=== PATIENT | male | born 1995 | race African-American/Black ===

== ENCOUNTER 2018-08-14 15:05 | Emergency (ER) | payer OTHER, SELFPAY ==
[2018-08-14 15:06] VITALS: BP 112/51; PULSE 82; RESP 16; TEMP 36.6; O2SAT 98; BMI 23.3
--- NOTE | 2018-08-14 15:23 | ED.VIS.GEN ---
History of Present Illness Chief Complaint: Edema Informant: Patient Onset: Days - Started a couple days ago Context: Gradual Onset Timing: Continuous Quality: Swelling Location: Pulling upper lip and palpable mass under chin Current Severity: Mild Maximum Severity: Mild Worsened by: Nothing Relieved by: Nothing Associated Symptoms: No associated symptoms Narrative: Patient is a 23-year-old male who presents with swelling to his upper lip. Started a couple days ago. He noted some crusting. He denies pain. He has complained of nasal congestion for the past 2 weeks. He believes his allergies. He denies fever, chills night sweats. He denies change in voice. He denies difficulty swallowing or breathing. He does report a lump under his chin. There is no history rheumatic fever, murmur, SBE or being immune suppressed. He reports he has no primary care physician. Prior similar symptoms: No Recent Illness/Hospitalization: No - Past Medical History (1) No significant past medical history Status: Acute Past Medical History - Allergies and Home Meds Allergies/Adverse Reactions: Allergies No Known Allergies Allergy (Verified 08/14/18 15:07) Primary Care Physician: Care Physician,No Primary [Primary Care Provider] - Prior records reviewed: Yes Past Medical History: None Surgical History: no surgical history Lives: Alone Smoking Status: Never smoker Drugs: None Review of Systems General: Denies: Chills, Fever, Malaise, Sweats Eyes: Denies: Visual changes - bilaterally, Blurred Vision - bilaterally, Diplopia ENT: Reports: Rhinorrhea. Denies: Bilateral ear pain, Sore throat Cardiovascular: Denies: Chest pain Respiratory: Denies: Dyspnea, Cough Gastrointestinal: Denies: Nausea, Vomiting Musculoskeletal: Reports: Swelling - Upper lip. Denies: Myalgias, Arthralgias, Neck pain, Back pain Skin: Reports: Rash. Denies: Abscess, Abrasions Hematologic: Denies: Easy bruising, Easy bleeding Allergy: Denies: Uticaria Physical Exam Vital Signs/Narrative: Vital Signs Temp Pulse Resp BP Pulse Ox 08/14/18 15:06 98 F 82 16 112/51 L 98 Inital Vital Signs reviewed: Yes General: Well nourished, Well developed, No Acute Distress Head: Normocephalic, Atraumatic Eyes: Perrl, EOMI. Negative for: Pale conjunctiva, Scleral icterus, - ENT: Moist mucous membranes, No rhinorrhea, TM's clear, - - Upper lip is slightly swollen. There is no erythema, warmth or induration. There is no fluctuance. There is crusting to suggest infection. There is submental lymphadenopathy. There is no evidence of Ludewig angina. There is no dental pathology noted. There is no trismus. There is no evidence of facial cellulitis. Neck: Supple, Nontender, No JVD. Negative for: No lymphadenopathy Cardiovascular: Regular rate, Regular rhythm, No murmurs, Normal S1, Normal S2 Respiratory: No distress, CTA bilaterally, Chest nontender Skin: Normal color, No rash Neurological: Alert, Oriented x3, Cranial nerves II-XII grossly intact, Normal Strength, Normal Sensation Psychological: Normal affect, Normal Mood Diagnostic/Tx/Re-eval - Medical Decision Making Patient was informed that he has an infection. Will place on antibiotic to cover strep staph organisms. Doubt cold sore or shingles. Patient was prescribed doxycycline since he has no antibiotic allergies. He states he does not have a physician but is insured and was referred to Dr. Ruiz. ED Disposition - Plan for ED Patient: Disposition: Home or Assisted Living Diagnosis: Infected lip laceration Instructions: ED Staph Infec Abx Tx Only Prescriptions: Doxycycline 100 mg PO BID #14 cap Referrals: Care Physician,No Primary [Primary Care Provider] - Danny Ruiz MD [STAFF PHYSICIAN] - 3-5 Days if not improving
[2018-08-14 15:46] VITALS: RESP 18
== END 2018-08-14 15:46 | disposition home or self-care (01) ==
PROVIDERS: Emergency Provider Emergency Medicine
DX: S01.511A Laceration without foreign body of lip, initial encounter (principal); L08.9 Local infection of the skin and subcutaneous tissue, unspecified; X58.XXXA Exposure to other specified factors, initial encounter; Y93.9 Activity, unspecified; Y92.9 Unspecified place or not applicable
CPT/HCPCS: 99282